=== PATIENT | male | born 1975 | race Caucasian/White ===

== ENCOUNTER 2017-06-08 13:22 | Emergency (ER) | payer MEDICAID ==
[2017-06-08 13:45] VITALS: BP 148/70
== END 2017-06-08 14:11 | disposition left against medical advice (07) ==
LOC: JP.ED 13:22
DX: Z53.21 Procedure and treatment not carried out due to patient leaving prior to being seen by health care provider (principal)

== ENCOUNTER 2019-01-21 20:23 | Emergency (ER) | payer MEDICAID | END 2019-01-21 21:01 | disposition left against medical advice (07) | LOC: JP.ED 20:23 | DX: Z53.21 Procedure and treatment not carried out due to patient leaving prior to being seen by health care provider (principal) ==

== ENCOUNTER 2019-02-12 13:02 | Emergency (ER) | payer MEDICAID ==
[2019-02-12 13:24] VITALS: BP 127/92
[2019-02-12] MEDS ORDERED: Acetaminophen/HYDROcodone 325-5 MG Tab PO ONE (13:43)
[2019-02-12] MEDS ORDERED: Penicillin V Potassium 250 MG Tab PO ONE (13:43)
--- NOTE | 2019-02-12 13:51 | EDM.PDOC ---
ED HPI GENERAL MEDICAL PROBLEM - General Chief Complaint: ENT Problem Stated Complaint: INFECTED TEETH Time Seen by Provider: 02/12/19 13:35 Source of Information: Reports: Patient, Old Records, RN History Limitations: Reports: No Limitations - History of Present Illness INITIAL COMMENTS - FREE TEXT/NARRATIVE: 43 yo male with chronic dental neglect presents with dental pain. Went to the dentist and walked out when he wasn't getting his way in the appt. Thinks he's running a low grade fever. All his teeth are bad and he needs an oral surgery referral for extraction. Has no family doctor either. 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 (see below) (none) Face/Facial Pain Score (Numeric/FACES): 10 - Related Data Allergies Allergy/AdvReac Type Severity Reaction Status Date / Time acetaminophen [From Percocet] AdvReac Nausea Verified 06/08/17 13:52 oxycodone [From Percocet] AdvReac Nausea Verified 06/08/17 13:52 Home Meds: Home Meds Acetaminophen/HYDROcodone [[place] 325-5 MG] 1 tab PO Q4H PRN #10 tab 02/12/19 [Rx ] Penicillin V Potassium 500 mg PO Q6HR #40 tab 02/12/19 [Rx] Past Medical History Psychiatric History: Reports: Addiction, Anxiety, Bipolar, Depression - Past Surgical History HEENT Surgical History: Reports: Oral Surgery GI Surgical History: Reports: Hernia Repair/Other Social & Family History - Tobacco Use Years of Tobacco use: 30 Packs/Tins Daily: 1 - Caffeine Use Caffeine Use: Reports: Coffee - Recreational Drug Use Recreational Drug Use: Yes Recreational Drug Type: Reports: Marijuana/Hashish ED ROS ENT - Review of Systems Review Of Systems: See Below Constitutional: Reports: No Symptoms HEENT: Reports: Dental Pain Respiratory: Reports: No Symptoms Cardiovascular: Reports: No Symptoms GI/Abdominal: Reports: No Symptoms : Reports: No Symptoms Skin: Reports: No Symptoms Neurological: Reports: No Symptoms Psychiatric: Reports: No Symptoms ED EXAM, ENT - Physical Exam Exam: See Below Exam Limited By: No Limitations General Appearance: Alert, No Apparent Distress, Thin, Other (has the stigmata of a chronic methamphetamine user. ) Ears: Normal External Exam, Normal TMs Nose: Normal Inspection, No Blood Mouth/Throat: Normal Lips, Normal Oropharynx, Dental Abcess, Dental Pain, Dental Tenderness, Other (Most of his teeth are decayed to the gum line. ). No : Normal Teeth, Pharyngeal Erythema, Tonsillar Erythema, Tonsillar Exudates, Tonsillar Swelling, Uvular Deviation, Uvular Edema Head: Atraumatic, Normocephalic Neck: Normal Inspection, Non-Tender Respiratory/Chest: No Respiratory Distress, No Accessory Muscle Use Back: Normal Inspection Extremities: Normal Inspection, Normal Range of Motion, Non-Tender, No Pedal Edema Neurological: Alert, Oriented, CN II-XII Intact, Normal Cognition, No Motor/ Sensory Deficits Psychiatric: Normal Affect, Normal Mood Skin: Warm, Dry, Intact, Normal Color, No Rash Course - Vital Signs Last Recorded V/S: Last Vital Signs Temp 37.7 C 02/12/19 13:23 Pulse 115 H 02/12/19 13:23 Resp 18 02/12/19 13:23 BP 127/92 H 02/12/19 13:23 Pulse Ox 99 02/12/19 13:23 - Orders/Labs/Meds Meds: Medications Discontinued Medications Generic Name Dose Route Start Last Admin Trade Name Ankushq PRN Reason Stop Dose Admin Hydrocodone Bitart/Acetaminophen 1 tab 02/12/19 13:43 [place] 325-5 Mg PO 02/12/19 13:44 ONETIME ONE Penicillin V Potassium 1,000 mg 02/12/19 13:43 Veetids PO 02/12/19 13:44 ONETIME ONE Departure - Departure Time of Disposition: 14:00 Disposition: Home, Self-Care 01 Condition: Fair Clinical Impression: Dental infection - Discharge Information *PRESCRIPTION DRUG MONITORING PROGRAM REVIEWED*: No *COPY OF PRESCRIPTION DRUG MONITORING REPORT IN PATIENT FLACO: No Prescriptions: Penicillin V Potassium 500 mg PO Q6HR #40 tab Acetaminophen/HYDROcodone [[place] 325-5 MG] 1 tab PO Q4H PRN #10 tab PRN Reason: Pain Instructions: Dental Abscess Referrals: PCP,None [Primary Care Provider] - Additional Instructions: Take Penicillin every 6 hrs until gone. Take ibuprofen and/or acetaminophen as needed for pain relief. Substitute Goldfield for acetaminophen if more pain relief is needed. Get established with a family doctor for more care. Return for a high fever. We will try to give you an oral surgery referral, but this likely needs to come from a dentist.
== END 2019-02-12 14:09 | disposition home or self-care (01) ==
LOC: JP.ED 13:02
DX: K04.7 Periapical abscess without sinus (principal); Z88.6 Allergy status to analgesic agent; Z98.890 Other specified postprocedural states
CPT/HCPCS: 99282; 99283; A9270

== ENCOUNTER 2019-04-04 22:40 | Day surgery (SDC) | payer MEDICAID ==
[2019-04-04] MEDS ORDERED: HYDROmorphone 0.5 MG/0.5 ML Syringe IVPUSH ONE (23:25)
[2019-04-04] MEDS ORDERED: Ondansetron 4 MG/2 ML SDV IVPUSH ONE (23:25)
--- NOTE | 2019-04-04 23:27 | EDM.PDOC ---
ED HPI GENERAL MEDICAL PROBLEM - General Chief Complaint: Abdominal Pain Stated Complaint: HERNIA Time Seen by Provider: 04/04/19 23:27 Source of Information: Reports: Patient History Limitations: Reports: No Limitations - History of Present Illness INITIAL COMMENTS - FREE TEXT/NARRATIVE: pt arrived with a bulge in his rt groin which started suddenly tonight, He has been very uncomfortable. He has been nauseated and did vomit some. He has a history of recurrent hernia problems. Onset: Today, Sudden Duration: Hour(s):, Getting Worse Location: Reports: Abdomen, Other ( Pt has a bulge in his rt groin which is not reducable. ) Associated Symptoms: Reports: No Other Symptoms right groin pain Pain Score (Numeric/FACES): 10 - Related Data Allergies Allergy/AdvReac Type Severity Reaction Status Date / Time oxycodone [From Percocet] AdvReac Nausea Verified 04/04/19 23:37 Home Meds: Home Meds NK [No Known Home Meds] 04/04/19 [History] Past Medical History Psychiatric History: Reports: Addiction, Anxiety, Bipolar, Depression - Past Surgical History HEENT Surgical History: Reports: Oral Surgery GI Surgical History: Reports: Hernia Repair/Other Social & Family History - Caffeine Use Caffeine Use: Reports: Coffee ED ROS GENERAL - Review of Systems Review Of Systems: See Below Constitutional: Reports: No Symptoms HEENT: Reports: No Symptoms Respiratory: Reports: No Symptoms Cardiovascular: Reports: No Symptoms Endocrine: Reports: No Symptoms GI/Abdominal: Reports: Abdominal Pain, Other ( acute onset of abdomanal pain in the rt groin. ) : Reports: No Symptoms Musculoskeletal: Reports: No Symptoms Skin: Reports: No Symptoms Neurological: Reports: No Symptoms ED EXAM, GI/ABD - Physical Exam Exam: See Below Text/Narrative:: pt arrived with pain in the rt groin. She noted a bulge in the rt groin which she could not reduce. He states he has had alot of hernias in the past. He has been nauseated. Exam Limited By: No Limitations General Appearance: Alert, Anxious, Moderate Distress, Other (pupils are equal and reactive. ) Ears: Normal TMs Nose: Normal Inspection Throat/Mouth: Normal Inspection Head: Atraumatic Neck: Normal Inspection Respiratory/Chest: No Respiratory Distress Cardiovascular: Regular Rate, Rhythm GI/Abdominal Exam: Other (pt has a definite bulge in the rt groin area which is not reducable. ) (Male) Exam: Hernia, Other ( Pt has a indirect hernia i the rt lower abdoman. ) Rectal (Males) Exam: Deferred Back Exam: Normal Inspection Extremities: Normal Inspection Neurological: Alert, Oriented, Normal Cognition Psychiatric: Normal Affect Course - Vital Signs Last Recorded V/S: Last Vital Signs Temp 36.8 C 04/04/19 23:49 Pulse 78 04/04/19 23:49 Resp 14 04/04/19 23:49 BP 105/70 04/04/19 23:49 Pulse Ox 98 04/04/19 23:49 - Orders/Labs/Meds Orders: Active Orders 24 hr Category Date Time Status Admission Status [Patient Status] [ADT] Routine ADT 04/05/19 03:22 Active Ambulate [RC] QID Care 04/05/19 03:39 Active Communication Order [RC] ASDIRECTED Care 04/05/19 03:39 Active Communication Order [RC] UPON Care 04/05/19 03:39 Active Dorsiflex/Plantar flex x 10 [RC] Q4HR Care 04/05/19 03:39 Active EKG Documentation Completion [RC] ASDIRECTED Care 04/05/19 02:48 Active Head of Bed Elevation [RC] ASDIRECTED Care 04/05/19 03:39 Active Intake and Output [RC] ASDIRECTED Care 04/05/19 03:39 Active Intake and Output [RC] ASDIRECTED Care 04/05/19 03:39 Active Intake and Output [RC] ASDIRECTED Care 04/05/19 03:39 Active Notify Provider Vital Signs [RC] ASDIRECTED Care 04/05/19 03:39 Active Pneumonia Education [RC] UPON Care 04/05/19 03:39 Active RT Incentive Spirometry [RC] Q1HWA Care 04/05/19 03:39 Active Ready for Discharge [RC] PER UNIT ROUTINE Care 04/05/19 03:39 Active Ready for Discharge [RC] UPON Care 04/05/19 03:39 Active Turn, Cough, Deep Breathe [RC] .PRN Care 04/05/19 03:39 Active Up to Chair [RC] ASDIRECTED Care 04/05/19 03:39 Active Vital Signs [RC] PER UNIT ROUTINE Care 04/05/19 03:39 Active Vital Signs [RC] PER UNIT ROUTINE Care 04/05/19 03:39 Active Advance Diet Instructions [DIET] Diet 04/05/19 Breakfast Active CBC WITH AUTO DIFF [HEME] Routine Lab 04/06/19 05:11 Ordered COMPREHENSIVE METABOLIC PN,CMP [CHEM] Routine Lab 04/06/19 05:11 Ordered Acetaminophen/HYDROcodone [[address] 325-5 MG] Med 04/05/19 03:39 Active 1 - 2 tab PO Q4H PRN Benzocaine/Cetylpyrd/Menthol [Cepacol Sore Throat] Med 04/05/19 03:39 Active 1 lozenge MUCMEM Q4H PRN Docusate Sodium [Colace] Med 04/05/19 03:39 Active 100 mg PO BID PRN Iopamidol [Isovue-300 (61%)] Med 04/05/19 00:45 Active 88 ml IV . DIRECTED Zolpidem [Ambien] Med 04/05/19 03:39 Active 5 mg PO BEDTIME PRN fentaNYL [Sublimaze] Med 04/05/19 03:47 Active 10 - 30 mcg IVPUSH Q1H PRN hydrOXYzine HCl [Vistaril] Med 04/05/19 03:39 Active 100 mg IM Q4H PRN Abdominal Binder [OM.PC] Routine Oth 04/05/19 03:39 Ordered Convert IV to Saline Lock [OM.PC] Routine Oth 04/05/19 03:39 Ordered Procedure Education [OM.PC] Routine Oth 04/05/19 03:39 Ordered Sequential Compression Device [OM.PC] Routine Oth 04/05/19 03:39 Ordered Resuscitation Status Routine Resus Stat 04/05/19 03:39 Ordered EKG 12 Lead [EK] Routine Ther 04/05/19 02:47 Ordered Medication Orders Hydrocodone Bitart/Acetaminophen ([address] 325-5 Mg) 1 - 2 tab PO Q4H PRN PRN Reason: Pain (moderate 4-6) Benzocaine/Menthol (Cepacol Sore Throat) 1 lozenge MUCMEM Q4H PRN PRN Reason: Sore Throat Docusate Sodium (Colace) 100 mg PO BID PRN PRN Reason: Constipation Fentanyl (Sublimaze) 10 - 30 mcg IVPUSH Q1H PRN PRN Reason: Pain (severe 7-10) Hydroxyzine HCl (Vistaril) 100 mg IM Q4H PRN PRN Reason: Breakthrough Pain Iopamidol (Isovue-300 (61%)) 88 ml IV . DIRECTED ANGEL Last Admin: 04/05/19 01:31 Dose: 100 ml Zolpidem Tartrate (Ambien) 5 mg PO BEDTIME PRN PRN Reason: Sleep Labs: Laboratory Tests 04/04/19 04/04/19 04/04/19 Range/Units 23:25 23:25 23:25 WBC 15.5 H (4.5-11.0) K/uL RBC 4.39 (4.30-5.90) M/uL Hgb 14.3 (12.0-15.0) g/dL Hct 41.6 (40.0-54.0) % MCV 95 (80-98) fL MCH 33 H (27-31) pg MCHC 34 (32-36) % Plt Count 334 (150-400) K/uL Neut % (Auto) 69 H (36-66) % Lymph % (Auto) 19 L (24-44) % [place] % (Auto) 10 H (2-6) % Eos % (Auto) 2 (2-4) % Baso % (Auto) 0 (0-1) % Sodium 139 L (140-148) mmol/L Potassium 3.7 (3.6-5.2) mmol/L Chloride 104 (100-108) mmol/L Carbon Dioxide 28 (21-32) mmol/L Anion Gap 10.7 (5.0-14.0) mmol/L BUN 15 (7-18) mg/dL Creatinine 1.0 (0.8-1.3) mg/dL Est Cr Clr Drug Dosing 77.80 mL/min Estimated GFR (MDRD) > 60 (>60) Glucose 150 H (74-106) mg/dL Calcium 8.5 (8.5-10.1) mg/dL Total Bilirubin 0.4 (0.2-1.0) mg/dL AST 18 (15-37) U/L ALT 24 (12-78) U/L Alkaline Phosphatase 62 (46-116) U/L Total Protein 6.8 (6.4-8.2) g/dL Albumin 3.3 L (3.4-5.0) g/dL Globulin 3.5 (2.3-3.5) g/dL Albumin/Globulin Ratio 0.9 L (1.2-2.2) Urine Color [place] Urine Appearance Cloudy Urine pH 6.0 (4.5-8.0) Ur Specific [place] 1.015 (1.008-1.030) Urine Protein Trace (NEGATIVE) mg/dL Urine Glucose (UA) Normal (NEGATIVE) mg/dL Urine Ketones Negative (NEGATIVE) mg/dL Urine Occult Blood Trace (NEGATIVE) Urine Nitrite Negative (NEGAITVE) Urine Bilirubin Moderate (NEGATIVE) Urine Urobilinogen 4 (NORMAL) mg/dL Ur Leukocyte Esterase Negative (NEGATIVE) Urine RBC 0-5 (0-5) Urine WBC 0-5 (0-5) Ur Epithelial Cells Rare Amorphous Sediment Moderate Urine Bacteria Few Urine Mucus Numerous Urine Other See note Urine Opiates Screen (NEGATIVE) Ur Oxycodone Screen (NEGATIVE) Urine Methadone Screen (NEGATIVE) Ur Propoxyphene Screen (NEGATIVE) Ur Barbiturates Screen (NEGATIVE) Ur Tricyclics Screen (NEGATIVE) Ur Phencyclidine Scrn (NEGATIVE) Ur Amphetamine Screen (NEGATIVE) U Methamphetamines Scrn (NEGATIVE) Urine MDMA Screen (NEGATIVE) U Benzodiazepines Scrn (NEGATIVE) U Cocaine Metab Screen (NEGATIVE) U Marijuana (THC) Screen (NEGATIVE) 04/04/19 Range/Units 23:26 WBC (4.5-11.0) K/uL RBC (4.30-5.90) M/uL Hgb (12.0-15.0) g/dL Hct (40.0-54.0) % MCV (80-98) fL MCH (27-31) pg MCHC (32-36) % Plt Count (150-400) K/uL Neut % (Auto) (36-66) % Lymph % (Auto) (24-44) % [place] % (Auto) (2-6) % Eos % (Auto) (2-4) % Baso % (Auto) (0-1) % Sodium (140-148) mmol/L Potassium (3.6-5.2) mmol/L Chloride (100-108) mmol/L Carbon Dioxide (21-32) mmol/L Anion Gap (5.0-14.0) mmol/L BUN (7-18) mg/dL Creatinine (0.8-1.3) mg/dL Est Cr Clr Drug Dosing mL/min Estimated GFR (MDRD) (>60) Glucose (74-106) mg/dL Calcium (8.5-10.1) mg/dL Total Bilirubin (0.2-1.0) mg/dL AST (15-37) U/L ALT (12-78) U/L Alkaline Phosphatase (46-116) U/L Total Protein (6.4-8.2) g/dL Albumin (3.4-5.0) g/dL Globulin (2.3-3.5) g/dL Albumin/Globulin Ratio (1.2-2.2) Urine Color Urine Appearance Urine pH (4.5-8.0) Ur Specific [place] (1.008-1.030) Urine Protein (NEGATIVE) mg/dL Urine Glucose (UA) (NEGATIVE) mg/dL Urine Ketones (NEGATIVE) mg/dL Urine Occult Blood (NEGATIVE) Urine Nitrite (NEGAITVE) Urine Bilirubin (NEGATIVE) Urine Urobilinogen (NORMAL) mg/dL Ur Leukocyte Esterase (NEGATIVE) Urine RBC (0-5) Urine WBC (0-5) Ur Epithelial Cells Amorphous Sediment Urine Bacteria Urine Mucus Urine Other Urine Opiates Screen Negative (NEGATIVE) Ur Oxycodone Screen Negative (NEGATIVE) Urine Methadone Screen Negative (NEGATIVE) Ur Propoxyphene Screen Negative (NEGATIVE) Ur Barbiturates Screen Negative (NEGATIVE) Ur Tricyclics Screen Negative (NEGATIVE) Ur Phencyclidine Scrn Negative (NEGATIVE) Ur Amphetamine Screen Negative (NEGATIVE) U Methamphetamines Scrn Negative (NEGATIVE) Urine MDMA Screen Negative (NEGATIVE) U Benzodiazepines Scrn Negative (NEGATIVE) U Cocaine Metab Screen Negative (NEGATIVE) U Marijuana (THC) Screen Presumptive positive H (NEGATIVE) Meds: Medications Generic Name Dose Route Start Last Admin Trade Name Freq PRN Reason Stop Dose Admin Hydrocodone Bitart/Acetaminophen 1 - 2 tab 04/05/19 03:[address] 325-5 Mg PO Q4H PRN Pain (moderate 4-6) Benzocaine/Menthol 1 lozenge 04/05/19 03:39 Cepacol Sore Throat MUCMEM Q4H PRN Sore Throat Docusate Sodium 100 mg 04/05/19 03:39 Colace PO BID PRN Constipation Fentanyl 10 - 30 mcg 04/05/19 03:47 Sublimaze IVPUSH Q1H PRN Pain (severe 7-10) Hydroxyzine HCl 100 mg 04/05/19 03:39 Vistaril IM Q4H PRN Breakthrough Pain Iopamidol 88 ml 04/05/19 00:45 04/05/19 01:31 Isovue-300 (61%) IV 100 ml . DIRECTED ANGEL Administration Zolpidem Tartrate 5 mg 04/05/19 03:39 Ambien PO BEDTIME PRN Sleep Discontinued Medications Generic Name Dose Route Start Last Admin Trade Name Kandace PRN Reason Stop Dose Admin Bupivacaine HCl Confirm 04/05/19 03:33 Marcaine 0.5% Administered 04/05/19 03:34 Dose 50 ml .ROUTE .STK-MED ONE Cefazolin Sodium Confirm 04/05/19 03:57 Ancef Administered 04/05/19 03:58 Dose 2 gm .ROUTE .STK-MED ONE Fentanyl Confirm 04/05/19 03:42 Sublimaze Administered 04/05/19 03:43 Dose 100 mcg .ROUTE .STK-MED ONE Hydromorphone HCl 0.5 mg 04/04/19 23:25 04/04/19 23:44 Dilaudid IVPUSH 04/04/19 23:26 0.5 mg ONETIME ONE Administration Hydromorphone HCl 0.5 mg 04/05/19 02:46 04/05/19 03:01 Dilaudid IVPUSH 04/05/19 02:47 0.5 mg ONETIME ONE Administration Sodium Chloride 1,000 mls @ 999 mls/hr 04/04/19 23:30 04/04/19 23:42 Normal Saline IV 999 mls/hr ASDIRECTED ANGEL Administration Sodium Chloride 100 mls @ 3 mls/sec 04/05/19 00:33 04/05/19 01:31 Normal Saline IV 04/05/19 00:34 3 mls/sec ONETIME ONE Administration Sodium Chloride 1,000 mls @ 999 mls/hr 04/05/19 02:15 04/05/19 03:01 Normal Saline IV 999 mls/hr ASDIRECTED ANGEL Administration Sodium Chloride Confirm 04/05/19 03:57 Normal Saline Administered 04/05/19 03:58 Dose 10 mls @ as directed .ROUTE .STK-MED ONE Lidocaine/Epinephrine Confirm 04/05/19 03:33 Xylocaine 1% With Epinephrine 1:100,000 Administered 04/05/19 03:34 Dose 50 ml .ROUTE .STK-MED ONE Midazolam HCl Confirm 04/05/19 03:42 Versed 1 Mg/Ml Administered 04/05/19 03:43 Dose 2 mg .ROUTE .STK-MED ONE Ondansetron HCl 4 mg 04/04/19 23:25 04/04/19 23:42 Zofran IVPUSH 04/04/19 23:26 4 mg ONETIME ONE Administration Propofol Confirm 04/05/19 03:42 Diprivan 20 Ml Administered 04/05/19 03:43 Dose 200 mg .ROUTE .STK-MED ONE - Re-Assessments/Exams Free Text/Narrative Re-Assessment/Exam: 04/05/19 02:10 cat scan of the abdoman showed a rt indirect inguinal hernia with small bowel extending into the hernia sac. Departure - Departure Time of Disposition: 02:12 Disposition: Admitted As Inpatient 65 Condition: Fair Clinical Impression: Inguinal hernia with strangulation - Discharge Information - My Orders Last 24 Hours: My Active Orders 04/05/19 00:45 Iopamidol [Isovue-300 (61%)] 88 ml IV . DIRECTED 04/05/19 03:22 Admission Status [Patient Status] [ADT] Routine - Assessment/Plan Last 24 Hours: My Active Orders 04/05/19 00:45 Iopamidol [Isovue-300 (61%)] 88 ml IV . DIRECTED 04/05/19 03:22 Admission Status [Patient Status] [ADT] Routine
[2019-04-04] MEDS ORDERED: Sodium Chloride 0.9% 1,000 ML IV SCH (23:30)
[2019-04-05] MEDS ORDERED: Sodium Chloride 0.9% 100 ML IV ONE (00:33)
[2019-04-05] MEDS ORDERED: Iopamidol 612 MG/ML 100 ML Bottle IV SCH (00:45)
--- NOTE | 2019-04-05 01:40 | CRLCT ---
INDICATION: Pain TECHNIQUE: CT abdomen and pelvis acquired with 88 cc Isovue-300 intravenous contrast. COMPARISON: None. FINDINGS: Lower chest: Mild dependent ground-glass left lung base. Liver: Normal in contour with hypodensity near the dome measuring 6 millimeters. This is indeterminate due to its small size. Statistically speaking, in the absence of a known primary malignancy this would likely represent an incidental finding. Indeterminate area of amorphous enhancement within the right lobe of the liver measuring 8 millimeters (2, 15). Gallbladder and bile ducts: Unremarkable. No stones or inflammation. No biliary dilatation. Pancreas: Unremarkable. No mass or inflammation. Spleen: Unremarkable. Normal in size. No masses. Adrenal glands: Unremarkable. No nodules. Kidneys: Unremarkable. No masses, stones, or hydronephrosis. GI tract: Evaluation the bowel is limited given the absence of oral contrast. However there is suggestion of some fold thickening within the stomach as well as proximal small bowel. There is faint haziness of the central mesentery as well. However, note is made of some fluid-filled borderline diameter loops of small bowel within the pelvis which appear to transition at the level of the right indirect inguinal hernia with small bowel extending into the hernia sac (2, 106). Vasculature: Unremarkable. Pelvis: Right indirect inguinal hernia as detailed above. Status post apparent left inguinal hernia repair. Bladder unremarkable. Bones: Unremarkable for age. Status post ventral hernia mesh. IMPRESSION: 1. Right indirect inguinal hernia with small bowel extending into the hernia sac. Mildly dilated small bowel proximal to this with caliber change suggesting small-bowel obstruction secondary to incarcerated hernia. 2. Mild diffuse fold thickening involving the stomach and proximal small bowel, possibly an enteritis/gastritis. 3. Other incidental findings as detailed above. Please note that all CT scans at this facility use dose modulation, iterative reconstruction, and/or weight-based dosing when appropriate to reduce radiation dose to as low as reasonably achievable. Dictated by Myles Woo MD @ Apr 05 2019 1:30AM Signed by Dr. Myles Woo @ Apr 05 2019 1:38AM
[2019-04-05] MEDS ORDERED: Sodium Chloride 0.9% 1,000 ML IV SCH (02:15)
[2019-04-05] MEDS ORDERED: HYDROmorphone 0.5 MG/0.5 ML Syringe IVPUSH ONE (02:46)
[2019-04-05] MEDS ORDERED: Bupivacaine 0.5% 50 ML MDV ONE (03:33)
[2019-04-05] MEDS ORDERED: Lidocaine 1% with EPINEPHrine 1:100,000 50 ML MDV ONE (03:33)
[2019-04-05] MEDS ORDERED: Acetaminophen/HYDROcodone 325-5 MG Tab PO PRN (03:39)
[2019-04-05] MEDS ORDERED: hydrOXYzine HCl 100 MG/2 ML SDV IM PRN (03:39)
[2019-04-05] MEDS ORDERED: Docusate Sodium 100 MG Cap PO PRN (03:39)
[2019-04-05] MEDS ORDERED: Zolpidem 5 MG Tab PO PRN (03:39)
[2019-04-05] MEDS ORDERED: Benzocaine/Cetylpyridinium/Menthol Lozenge MUCMEM PRN (03:39)
[2019-04-05] MEDS ORDERED: Midazolam 1 MG/ML 2 ML SDV ONE (03:42)
[2019-04-05] MEDS ORDERED: Propofol 200 MG/20 ML SDV ONE (03:42)
[2019-04-05] MEDS ORDERED: fentaNYL 100 MCG/2 ML SDV ONE (03:42)
[2019-04-05] MEDS ORDERED: fentaNYL 100 MCG/2 ML SDV IVPUSH PRN (03:47)
[2019-04-05] MEDS ORDERED: ceFAZolin 1 GM Vial ONE (03:57)
[2019-04-05] MEDS ORDERED: Sodium Chloride 0.9% 10 ML ONE (03:57)
[2019-04-05] MEDS ORDERED: Lactated Ringers 1,000 ML ONE (04:18)
[2019-04-05] MEDS ORDERED: Ketorolac 60 MG/2 ML SDV ONE (04:24)
[2019-04-05] MEDS ORDERED: Ondansetron 4 MG/2 ML SDV IVPUSH PRN (05:30)
[2019-04-05 07:18] VITALS: BP 101/72; PULSE 68
--- NOTE | 2019-04-05 08:04 | OR ---
DATE OF PROCEDURE: 04/05/2019 SURGEON: Riley Diaz MD PROCEDURE PERFORMED: Repair of incarcerated hernia, right groin. FINDINGS: Incarcerated omentum. COMPLICATIONS: None. HAND TUFTER: None. ANESTHETIC: MAC/local. INDICATIONS: A 44-year-old male with incarcerated right groin. There was concern for bowel incarceration, but none was noted. The patient and I discussed the preoperative plan including risks, benefits, alternatives, and limitations. We also discussed the use of mesh. The patient informs me he is part of an active lawsuit with respect to mesh; however, he specifically requested mesh usage during this procedure. This was included on the consent, which he did sign. We again reviewed the risks, benefits, alternatives, and limitations of using mesh separately and the risks, benefits, alternatives, and limitations of the remainder of the surgery. We also discussed testicular injury, vascular compromise, chronic pain, hematoma, seroma, requirement for reoperation, chronic scarring, and other risks not listed here. The patient understands these risks and wished to proceed. DESCRIPTION OF PROCEDURE: The patient was placed in supine position. A suprapubic curvilinear incision was made in a standard fashion. It was approximately 4 cm in size. This was carried down to the external oblique aponeurosis, which was opened with #15 blade. The cord structures were identified, surrounded, and controlled with the Sylvia drain. The hernia itself was quite small. A small plug and patch system was then placed in the hernia itself. This was sewed with interrupted Vicryl sutures. Although, the plug was probably sufficient to repair the defect, an overlay patch was then placed with interrupted sutures. The external oblique aponeurosis was closed with Vicryl suture. Skin was closed with 4-0 Vicryl. Dermabond was applied. The patient tolerated the procedure well. Riley Diaz MD /[id number]
== END 2019-04-05 07:30 | disposition home or self-care (01) ==
LOC: JP.ED 22:40 → JP.SDS 04-05 03:22 → JP.MS 04-05 05:00 → JP.SDS 04-05 07:30
PROVIDERS: ATTEND Surgery
DX: K40.30 Unilateral inguinal hernia, with obstruction, without gangrene, not specified as recurrent (principal); K56.609 Unspecified intestinal obstruction, unspecified as to partial versus complete obstruction; F17.210 Nicotine dependence, cigarettes, uncomplicated; N19 Unspecified kidney failure; Z88.5 Allergy status to narcotic agent
CPT/HCPCS: 36415; 49507; 74177; 80053; 80305; 81001; 85025; 93005; 93010; 96361; 96374; 96375; 96376; 99283; 99284; A9270; C1781; J0690; J1170; J1885; J2250; J2405; J2704; J3010; J3410; J3490; J7030; J7120; Q9967

== ENCOUNTER 2019-04-13 20:37 | Emergency (ER) | payer MEDICAID ==
[2019-04-13 23:11] VITALS: BP 137/111; PULSE 77
--- NOTE | 2019-04-13 23:46 | EDM.PDOC ---
ED HPI GENERAL MEDICAL PROBLEM - General Chief Complaint: ENT Problem Stated Complaint: PAIN Time Seen by Provider: 04/13/19 23:30 Source of Information: Reports: Patient History Limitations: Reports: No Limitations - History of Present Illness INITIAL COMMENTS - FREE TEXT/NARRATIVE: 44-year-old presents to concerns of dental pain as well as pain and site of recent hernia repair. Reports primarily his pain is in his teeth, knows that he has bad teeth and has not been able to can't see a dentist. hurts all over his mouth. no fevers or chills. No nausea or vomiting. No change in bowel movements. Is also having some pain at the site of this hernia repair, but reports that this is typical for hernia surgery is the third time he's had this done. face Pain Score (Numeric/FACES): 8 - Related Data Allergies Allergy/AdvReac Type Severity Reaction Status Date / Time oxycodone [From Percocet] AdvReac Nausea Verified 04/13/19 23:05 Home Meds: Home Meds Hydrocodone/Acetaminophen [Hydrocodon-Acetaminophen 5-325] 1 - 2 tab PO Q4H PRN 04/13/19 [History] Past Medical History HEENT History: Reports: Other (See Below) Other HEENT History: broken teeth Gastrointestinal History: Reports: None Psychiatric History: Reports: Addiction, Anxiety, Bipolar, Depression - Infectious Disease History Infectious Disease History: Reports: Chicken Pox - Past Surgical History HEENT Surgical History: Reports: Oral Surgery GI Surgical History: Reports: Hernia Repair/Other Social & Family History - Tobacco Use Smoking Status *Q: Current Every Day Smoker Years of Tobacco use: 28 Packs/Tins Daily: 1 - Caffeine Use Caffeine Use: Reports: Coffee - Recreational Drug Use Recreational Drug Use: Yes Drug Use in Last 12 Months: No ED ROS ENT - Review of Systems Review Of Systems: See Below Constitutional: Reports: No Symptoms HEENT: Reports: Dental Pain Respiratory: Reports: No Symptoms Cardiovascular: Reports: No Symptoms Endocrine: Reports: No Symptoms GI/Abdominal: Reports: Abdominal Pain. Denies: Constipation, Diarrhea, Decreased Appetite, Nausea, Vomiting : Reports: No Symptoms Musculoskeletal: Reports: No Symptoms Skin: Reports: No Symptoms Neurological: Reports: No Symptoms Psychiatric: Reports: No Symptoms Hematologic/Lymphatic: Reports: No Symptoms Immunologic: Reports: No Symptoms ED EXAM, ENT - Physical Exam Exam: See Below Exam Limited By: No Limitations General Appearance: Alert, Other (poor hygiene) Ears: Normal External Exam Nose: Normal Inspection Mouth/Throat: Other (poor dentition, no obvious abscess) Head: Atraumatic, Normocephalic Respiratory/Chest: No Respiratory Distress Cardiovascular: Regular Rate, Rhythm GI/Abdominal: Soft, No Distention, Other (right inguinal hernia repair surgical site appears well healed.) Neurological: Alert, Oriented Psychiatric: Normal Affect Skin: Warm, Dry Course - Vital Signs Last Recorded V/S: Last Vital Signs Temp 36.8 C 04/13/19 23:07 Pulse 77 04/13/19 23:07 Resp 18 04/13/19 23:07 BP 137/111 H 04/13/19 23:07 Pulse Ox 94 L 04/13/19 23:07 - Re-Assessments/Exams Free Text/Narrative Re-Assessment/Exam: 44-year-old male with recent inguinal hernia repair and long-standing history of poor dentition presents concerned of dental pain as well as ongoing pain at site of recent hernia repair. After storming out of the ED and yelling in the halls the patient was evaluated. He is demanding more prescription pain medication and antibiotics. He reports no one has been able to get him in to see a dentist. His is not concerned about the level of pain at his hernia repair site. He denies any symptoms of surgical complication such as fever, N/V, abdominal distension. Incision appears to be healing well. He does have poor dentition but no obvious drainable abscess. The importance of dental follow up was stressed to the patient. He has prescription pain medication left that was prescribed by his surgeon, I declined prescribing further pain meds. I did offer a course of antibiotics. Prior to receiving discharge paperwork and script the patient again stormed out of the ED, he pulled a knife out of his shorts and cut his wristband off in front of the registration desk staff before leaving the hospital. 04/13/19 23:55 Departure - Departure Time of Disposition: 23:45 Disposition: Home, Self-Care 01 Clinical Impression: Pain, dental - Discharge Information *PRESCRIPTION DRUG MONITORING PROGRAM REVIEWED*: Yes *COPY OF PRESCRIPTION DRUG MONITORING REPORT IN PATIENT FLACO: No Instructions: Dental Abscess, [id number] Referrals: Riley Diaz MD [Primary Care Provider] - Forms: ED Department Discharge Additional Instructions: Take the prescribed antibiotics. You can continue to use the pain medication prescribed by your surgeon You need to see a dentist, it is up to you to find an opening in a clinic Please follow up with your surgeon
== END 2019-04-13 23:53 | disposition home or self-care (01) ==
LOC: JP.ED 20:37
DX: K08.89 Other specified disorders of teeth and supporting structures (principal); F17.210 Nicotine dependence, cigarettes, uncomplicated; Z98.890 Other specified postprocedural states
CPT/HCPCS: 99282; 99283

== ENCOUNTER 2021-07-30 10:37 | Emergency (ER) | payer MEDICAID ==
[2021-07-30 10:52] VITALS: BP 110/79; PULSE 61
== END 2021-07-30 11:20 | disposition home or self-care (01) ==
LOC: JP.ED 10:37
DX: Z53.21 Procedure and treatment not carried out due to patient leaving prior to being seen by health care provider (principal)